=== PATIENT | male | born 1950 | race Caucasian/White ===

== ENCOUNTER → 2016-07-01 09:43 | Outpatient (CLI) | payer MEDICARE, OTHER | END | disposition home or self-care (01) | LOC: D.MRI 09:43 | DX: C79.51 Secondary malignant neoplasm of bone (principal) ==

== ENCOUNTER → 2016-11-10 07:37 | Outpatient (CLI) | payer MEDICARE, OTHER | LOC: D.MRI 07:37 | DX: C61 Malignant neoplasm of prostate (principal) ==

== ENCOUNTER → 2017-09-29 09:16 | Outpatient (CLI) | payer MEDICARE, OTHER | END | disposition home or self-care (01) | LOC: D.CT 09-24 09:00 | DX: R10.32 Left lower quadrant pain (principal) ==

== ENCOUNTER → 2018-01-31 09:57 | Outpatient (CLI) | payer MEDICARE, OTHER | END | disposition home or self-care (01) | LOC: D.MRI 09:57 | DX: C61 Malignant neoplasm of prostate (principal) ==